=== PATIENT | female | born 1965 | race Caucasian/White ===

== ENCOUNTER 2021-11-23 15:00 | Outpatient (RCR) | payer BC, SELFPAY ==
--- NOTE | 2021-10-19 12:35 | OT.OPOE ---
OT Outpatient Ortho Eval OT Outpatient Ortho Eval Start: 10/19/21 11:07 Freq: Status: Active Protocol: Document 10/19/21 11:08 DANN (Rec: 10/19/21 11:14 DANN [id number]) E-signed By Hien Lindo, OTR/L, CLT OT OP Ortho Eval Details Type Type Eval Complexity Low Outpatient History/Precautions Insurance Information Insurance Information Blue Cross/[employer] Current Condition/Medical Diagnosis Referring Provider Margot Vázquez PA-C Treatment Diagnosis R elbow, wrist pain Date of Onset 05/17/21 Other Conditions Anxiety, hyperlipidemia, Factor V Leien R sciatica. 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 Has 45# dog, 19 y/o in college at [employer] and 21 y/o son at [employer]. She has been having increased R lateral epicondyle pain after large ledesma thorn removal and paving projects in May 2021. Has tried changing activities, and now has stopped weightlifting, per poor tolerance of weightlifting machines. Now taking ibuprofen 600 mg 1-2 x day ( was rx 3x/day). Functionally having difficulty with managing food containers , lifting groceries, pots and pans, use of gardening tools/ dog leash in R hand, unable to use weight machines at the gym. Pain Assessment Pain Present Pain Present Pain Reported Location R el Description Tightness,Pressure,Sharp,Dull, Achy,Throbbing,Stabbing,With Movement Intensity 8 Goniometric Comments Goniometric Comments Goniometric Comments ROM is WNl for all forearm and wrist planes. MMT of biceps/triceps 5/5, biceps resistance 3/10 tendon at R CET. 4+/5 and tender at R common extensor tendon/CET ulnar margin 2 cm distal to ulnar groove during WR EX ( 7/ 10 pn), RD (3/10), Supination (3/10) and pronation 5/10). Chip Machine Operator is 21# R (6/10 at CET) pos 1 and pos 2 is 7# (6/10 pain at CET). (improves to 16 # with compression cuff in place). L is 54# pos 1 and 50 # pos #2. Johnson pinch is 11# R ( 3/10 at CET) and L is 13#. 3 pt is 9.5# R ( 1/10 tender) and 13#L. OT Objective Data Hand Hand Dominance Right Additional Information Objective Additional Information Wrist extensor muscles R are thick rope like with round thick nodules 1.5 cm x 2 in upper CET. /lateral aspect. No biceps, tricep trigger points. . Upper Extremity Special Tests Wrist Durkan's Test Negative Left,Negative Right Tenosynovitis Wrist Finklestein Test Negative Left,Negative Right Degenerative Arthritis Hand Trapeziometacarpal Joint Grind Test Negative Right Upper Extremity Special Tests Comments Comments Pos 2 package collector is 7/10 painful R UE. OT Problems Problems Problems Decreased Strength,Sensory Sensitivity,Lifting,Gripping, Pinching Assessment Assessment Assessment Given Jennifer's diagnosis of elbow/wrist pain (with lateral epicondylitis sx pattern) and ?difficulty with edema, pain, ROM and strength loss of R hand, wrist/elbow, she would benefit from skilled OT to address these areas. would benefit from skilled OT to suport reduced pain with daily function. Occupational Therapy Treatment Plan - OP Potential Rehabilitation Potential Excellent Set Goals Goals Set with Patient Yes Goals Goals In 8 weeks, Jennifer will demonstrate:? 1) Decreased pn to <2/10 80% of the time with sustained gripping, carrying groceries, reading books and weeding. 2) I HEP for stretching, gradual strengthening and self mgmt strategies. 3) improved R package collector strength to 45# and pinch to 13# with R forearm pain < 1/10. 4) ??Pt to be fit with functional bracing (for elbow counter pressure cuff,) and use adaptive strategies to protect joint integrity to support less pain with ADL. Treatment Plan Treatment Plan Evaluation,Edema Control, Iontophoresis,Joint Mobilization,Manual Therapy, Splinting,Ultrasound, Therapeutic Exercise,Self-Care /Home Management,Education Expected Frequency 1-2x Week Expected Duration 6-8 Weeks Certification Certification I Certify That: Therapy Services Provided, Therapy Plan Established, Therapy Plan Reviewed
== END 2022-08-05 08:12 | disposition home or self-care (01) ==
PROVIDERS: PCP Physician Assistant Medical; Visit Provider Physician Assistant Medical
DX: M25.521 Pain in right elbow (principal); M25.531 Pain in right wrist; Z51.89 Encounter for other specified aftercare
CPT/HCPCS: 80061; 80076; 97033; 97035; 97110; 97140; 97165; 97535; X5282

== ENCOUNTER 2022-02-04 12:39 | Outpatient (CLI) | payer BC, SELFPAY ==
[2022-02-04 16:26] LABS: Albumin* 4.2 g/dL (3.3-5.0)
[2022-02-04 16:28] LABS: Cholesterol* 184 mg/dL (90-199)
[2022-02-04 16:29] LABS: Alanine Aminotransferase* 28 U/L (4-35); Alkaline Phosphatase* 52 U/L (40-150); Aspartate Amino Transferase* 39 U/L (12-35); Bilirubin Direct* 0.1 mg/dL (0.0-0.5); Bilirubin Total* 0.6 mg/dL (0.1-1.5); HDL Cholesterol* 58 mg/dL (>=50); LDL Cholesterol Calculated 111 mg/dL (<100); Total Protein* 6.9 g/dL (6.0-8.3); Triglycerides* 73 mg/dL (40-149)
== END 2022-02-04 12:40 | disposition home or self-care (01) ==
PROVIDERS: PCP Physician Assistant Medical; Visit Provider Physician Assistant Medical
DX: E78.5 Hyperlipidemia, unspecified (principal)
CPT/HCPCS: 80061; 80076

== ENCOUNTER 2022-03-15 08:58 | Outpatient (CLI) | payer OTHER, SELFPAY ==
[2022-03-15 13:56] LABS: Glucose* 94 mg/dL (60-115)
[2022-03-15 14:36] LABS: Hepatitis C Virus Antibody* Negative (Negative)
[2022-03-15 14:38] LABS: HIV 1/2/P24 Combo Screen* Negative (Negative)
== END 2022-03-15 08:59 | disposition home or self-care (01) ==
PROVIDERS: PCP Physician Assistant Medical; Visit Provider Physician Assistant Medical
DX: Z00.00 Encounter for general adult medical examination without abnormal findings (principal); E78.5 Hyperlipidemia, unspecified; R79.89 Other specified abnormal findings of blood chemistry; Z13.1 Encounter for screening for diabetes mellitus
CPT/HCPCS: 82947; 86703; 86803

== ENCOUNTER 2022-10-14 08:41 | Outpatient (CLI) | payer OTHER, SELFPAY ==
--- NOTE | 2022-10-14 08:45 | CRLHL7_ITS ---
For Patients: As a result of the Century Cures Act, medical imaging exams and procedure reports are released immediately into your electronic medical record. You may view this report before your referring provider. If you have questions, please contact your health care provider. BILATERAL DIGITAL SCREENING MAMMOGRAM WITH TOMOSYNTHESIS AND COMPUTER-AIDED DETECTION CLINICAL HISTORY: Routine screening exam. COMPARISON: 01/13/2021, 11/14/2019, 10/23/2018. TECHNIQUE: Digital mammogram in CC and MLO projections including computer-aided detection (CAD). Tomosynthesis utilized. BREAST COMPOSITION: The breasts are heterogeneously dense, which may obscure small masses. FINDINGS: RIGHT Breast: No suspicious findings. LEFT Breast: Focal asymmetric density retroareolar plane 5 cm from the nipple. IMPRESSION: LEFT breast asymmetry/mass. RECOMMENDATIONS: Additional mammographic views of the LEFT breast including 3D spot compression CC/MLO. LEFT breast ultrasound may also be required. BI-RADS Category 0: Incomplete: Need Additional Imaging Evaluation and/or Prior Mammograms for Comparison The [facility] will contact the patient for follow-up. A lay language report of this examination will be provided to the patient. Dictated by Ernie Montanez MD @ 10/14/2022 11:57:41 AM jj/Dictated by: Ernie Montanez MD @ 10/14/2022 11:57:00 AM (Electronically Signed)
== END 2022-10-14 08:42 | disposition home or self-care (01) ==
LOC: MAMMO 08:42
PROVIDERS: PCP Physician Assistant Medical; Visit Provider Physician Assistant Medical
DX: Z12.31 Encounter for screening mammogram for malignant neoplasm of breast (principal); N63.20 Unspecified lump in the left breast, unspecified quadrant; R92.2 Inconclusive mammogram
CPT/HCPCS: 77063; 77067

== ENCOUNTER 2022-10-20 09:20 | Outpatient (CLI) | payer OTHER, SELFPAY ==
--- NOTE | 2022-10-20 09:45 | CRLHL7_ITS ---
For Patients: As a result of the Cures Act, medical imaging exams and procedure reports are released immediately into your electronic medical record. You may view this report before your referring provider. If you have questions, please contact your health care provider. DIAGNOSTIC LEFT BREAST MAMMOGRAM WITH COMPUTER-AIDED DETECTION AND TOMOSYNTHESIS LEFT BREAST ULTRASOUND CLINICAL HISTORY: LEFT breast mass/asymmetry. COMPARISON: 10/14/2022. TECHNIQUE: Digital LEFT mammogram in 2 projections. Computer-aided detection and tomosynthesis were used. Real-time ultrasound imaging of LEFT breast with imaging documentation. Scanning was performed by both the technologist and the radiologist. BREAST COMPOSITION: There are scattered areas of fibroglandular density FINDINGS: 3D spot-compression CC/MLO LEFT breast mammogram images submitted. Decreased conspicuity of previously noted asymmetric density. No architectural distortion. Punctate benign calcifications. Targeted LEFT breast ultrasound performed in the retroareolar plane extending to 12 o`clock 5 cm from the nipple. Normal fibroglandular tissue is present. No suspicious findings. IMPRESSION: No evidence of malignancy LEFT breast. RECOMMENDATIONS: Annual bilateral screening mammography. BI-RADS Category 2: Benign Results and recommendations discussed with the patient. A lay language report of this examination will be provided to the patient. Dictated by Ernie Montanez MD @ 10/20/2022 12:21:55 PM/dante KEVEN/Dictated by: Ernie Montanez MD @ 10/20/2022 12:21:00 PM (Electronically Signed)
--- NOTE | 2022-10-20 10:15 | CRLHL7_ITS ---
For Patients: As a result of the Century Cures Act, medical imaging exams and procedure reports are released immediately into your electronic medical record. You may view this report before your referring provider. If you have questions, please contact your health care provider. PLEASE SEE LEFT DIAGNOSTIC MAMMOGRAM OF SAME DAY. CRL:dante KEVEN/Dictated by: Ernie Montanez MD @ 10/20/2022 12:21:00 PM (Electronically Signed)
== END 2022-10-20 09:21 | disposition home or self-care (01) ==
LOC: MAMMO 09:21
PROVIDERS: PCP Physician Assistant Medical; Visit Provider Physician Assistant Medical
DX: N63.20 Unspecified lump in the left breast, unspecified quadrant (principal); R92.8 Other abnormal and inconclusive findings on diagnostic imaging of breast
CPT/HCPCS: 76642; 77065; G0279

== ENCOUNTER 2022-11-12 10:54 | Outpatient (CLI) | payer OTHER, SELFPAY ==
--- NOTE | 2022-11-12 12:40 | W.ANESCHARGE ---
Anesthesia Charges Start Date/Time Anesthesia Start Date: 11/12/22 Anesthesia Start Time: 12:20 Stop Date/Time Anesthesia Stop Date: 11/12/22 Anesthesia Stop Time: 12:42
--- NOTE | 2022-11-12 12:44 | W.ANESCHARGE ---
Anesthesia Charges Start Date/Time Anesthesia Start Date: 11/12/22 Anesthesia Start Time: 12:20 Stop Date/Time Anesthesia Stop Date: 11/12/22 Anesthesia Stop Time: 12:42
== END 2022-11-12 10:55 | disposition home or self-care (01) ==
LOC: OP CLINIC 10:55
PROVIDERS: PCP Physician Assistant Medical; Visit Provider Internal Medicine
DX: Z12.11 Encounter for screening for malignant neoplasm of colon (principal); K57.30 Diverticulosis of large intestine without perforation or abscess without bleeding; Z86.010 Personal history of colon polyps
CPT/HCPCS: 00812; 45378; J2704

== ENCOUNTER 2023-04-15 13:00 | Outpatient (RCR) | payer OTHER, SELFPAY | END 2023-08-13 23:59 | disposition home or self-care (01) | PROVIDERS: PCP Physician Assistant Medical; Visit Provider Physician Assistant Medical | DX: M79.671 Pain in right foot (principal); M79.672 Pain in left foot; Z51.89 Encounter for other specified aftercare | CPT/HCPCS: 80053; 80061; 82306; 84443; 97110; 97162 ==

== ENCOUNTER 2023-05-10 19:07 | Outpatient (CLI) | payer OTHER, SELFPAY ==
--- NOTE | 2023-05-31 08:57 | W.PM.SLEEP ---
Sleep Study Details Details Interpreting Provider: Zenia Date of Sleep Study: 05/10/23 Sleep Study Details: STUDY TYPE:? Home unattended ? BMI:? 28 ORDERING PROVIDER:Smiley Vázquez INDICATION:? Concerns about sleep apnea ? SLEEP SUMMARY:? 481 minutes monitored RESPIRATORY SUMMARY:? AHI 8.6 Low oxygen 85 0.3% of study oxygen less than 90% Snoring 56.7% PERIODIC LIMB MOVEMENTS OF SLEEP:? Not recorded during home study CARDIAC:? Range 56-108, mean 70.4 IMPRESSION:? Mild obstructive sleep apnea RECOMMENDATION: Treatment options include CPAP, dental appliance and/or airway expansion surgery.
== END 2023-05-10 19:08 | disposition home or self-care (01) ==
LOC: SLEEP 19:07
PROVIDERS: PCP Physician Assistant Medical; Visit Provider Physician Assistant Medical
DX: G47.33 Obstructive sleep apnea (adult) (pediatric) (principal)
CPT/HCPCS: 95806

== ENCOUNTER 2023-07-29 13:37 | Outpatient (CLI) | payer OTHER, SELFPAY | END 2023-07-29 13:38 | disposition home or self-care (01) | LOC: NFLDREF 08-01 15:32 | PROVIDERS: PCP Physician Assistant Medical; Referring Provider Physician Assistant Medical; Visit Provider Physician Assistant Medical | DX: E78.5 Hyperlipidemia, unspecified (principal) | CPT/HCPCS: 82550 ==

== ENCOUNTER 2023-09-23 08:35 | Outpatient (CLI) | payer OTHER, SELFPAY | END 2023-09-23 08:36 | disposition home or self-care (01) | LOC: NFLDREF 09-25 04:53 | PROVIDERS: PCP Physician Assistant Medical; Referring Provider Physician Assistant Medical; Visit Provider Physician Assistant Medical | DX: E78.5 Hyperlipidemia, unspecified (principal) | CPT/HCPCS: 80061 ==

== ENCOUNTER 2023-10-17 11:12 | Outpatient (CLI) | payer OTHER, SELFPAY | END 2023-10-17 11:13 | disposition home or self-care (01) | PROVIDERS: PCP Physician Assistant Medical; Visit Provider Physician Assistant Medical | DX: R53.83 Other fatigue (principal) | CPT/HCPCS: 80061; 80076; 82607; 82728 ==

== ENCOUNTER 2023-12-13 16:45 | Outpatient (CLI) | payer OTHER, SELFPAY ==
--- NOTE | 2023-12-13 17:20 | CRLHL7_ITS ---
For Patients: As a result of the Century Cures Act, medical imaging exams and procedure reports are released immediately into your electronic medical record. You may view this report before your referring provider. If you have questions, please contact your health care provider. BILATERAL SCREENING MAMMOGRAM WITH COMPUTER-AIDED DETECTION AND TOMOSYNTHESIS TECHNIQUE: CC and MLO views were obtained. These mammographic images have been obtained using full-field digital technique. These mammographic images were interpreted with the benefit of computer-aided detection. Breast tomosynthesis was used in this interpretation. COMPARISON FILM: 10/20/22 diagnostic, 10/14/22, 05/14/22. FINDINGS: There are scattered areas of fibroglandular density. IMPRESSION: There is no radiographic evidence for malignancy. ASSESSMENT: BI-RADS Category 1: Negative RECOMMENDATION: Routine screening mammogram in 1 year. A lay language report of this examination will be provided to the patient. ERNIE MILES M.D. Diagnostic Radiologist [email or web address] Transcribed: 1:[address]/Dictated by: Ernie Miles MD @ 12/19/2023 11:31:00 AM (Electronically Signed)
== END 2023-12-13 16:46 | disposition home or self-care (01) ==
LOC: MAMMO 16:45
PROVIDERS: PCP Physician Assistant Medical; Visit Provider Physician Assistant Medical
DX: Z12.31 Encounter for screening mammogram for malignant neoplasm of breast (principal)
CPT/HCPCS: 77063; 77067

== ENCOUNTER 2024-01-06 08:50 | Outpatient (CLI) | payer OTHER, SELFPAY | END 2024-01-06 08:51 | disposition home or self-care (01) | LOC: NFLDREF 14:31 | PROVIDERS: PCP Physician Assistant Medical; Referring Provider Physician Assistant Medical; Visit Provider Physician Assistant Medical | DX: R79.89 Other specified abnormal findings of blood chemistry (principal) | CPT/HCPCS: 80076 ==

== ENCOUNTER 2024-09-19 08:15 | Outpatient (CLI) | payer OTHER, SELFPAY | END 2024-09-19 08:16 | disposition home or self-care (01) | LOC: NFLDREF 09-23 14:35 | PROVIDERS: PCP Physician Assistant Medical; Referring Provider Physician Assistant Medical; Visit Provider Family Medicine | DX: E78.5 Hyperlipidemia, unspecified (principal); Z13.29 Encounter for screening for other suspected endocrine disorder; Z13.1 Encounter for screening for diabetes mellitus | CPT/HCPCS: 80048; 80061; 84443 ==

== ENCOUNTER 2024-09-20 14:21 | Outpatient (CLI) | payer OTHER, SELFPAY ==
--- NOTE | 2024-09-20 14:30 | CRLHL7_ITS ---
For Patients: As a result of the Century Cures Act, medical imaging exams and procedure reports are released immediately into your electronic medical record. You may view this report before your referring provider. If you have questions, please contact your health care provider. XR DXA BONE MINERAL DENSITY (BMD) Current height (in): 64.0. Weight (lb): 165.0. Menopause age: 51. Ethnicity: White. Reason for exam: Screening for osteoporosis. 1. Have you had a previous hip or vertebral fracture? No. 2. Have you had any fractures during your adult life which did not result from significant trauma (e.g., auto accident)? No. 3. Did either of your parents have a hip fracture? No. 4. Do you smoke? No. 5. Have you ever taken Glucocorticoids? No. 6. Do you have rheumatoid arthritis? No. 7. Do you have secondary osteoporosis? No. 8. Do you drink 3 or more alcoholic drinks per day? No. 9. Are you being treated for osteoporosis? No. 10. Have you ever taken any of the following medications: Actonel, Evista, Fosamax, Miacalcin, Reclast, Boniva, Forteo, HRT (i.e. estrogen/hormone therapy), Protelos, Prolia, Vitamin D, Calcium, other ??? please specify. ANSWER: Yes, vitamin D, HRT. 11. Do you have any of the following medical conditions: Anorexia or bulimia, asthma or emphysema, end stage renal disease, hyperparathyroidism, any seizure disorders, cancer, inflammatory bowel diseases, hysterectomy, other ??? please specify. ANSWER: No. 12. What was your maximum height (inches)? 64. 13. Do you perform weight bearing exercise regularly? Yes. 14. Do you regularly consume dairy products? No. 15. Do you drink caffeinated beverages? No. 16. At what age did your period start? 15. 17. Are you premenopausal? No. 18. How many full-term pregnancies have you had? 2. 19. Have you ever missed your period for more than 6 months in a row (not including or menopause)? No. TECHNIQUE: Bone mineral density study was performed using the [employer] FINDINGS: The results of the study expressed as bone mineral density (BMD) are as follows: Lumbar spine L1 to L4: BMD: 0.926 g/cm2. T-score: -1.1. Z-score: 0.2 Neck Left: BMD: 0.677 g/cm2. T-score: -1.6. Z-score: -0.3 Right: BMD: 0.668 g/cm2. T-score: -1.6. Z-score: -0.4 Total Left: BMD: 0.832 g/cm2. T-score: -0.9. Z-score: -0.0 Right: BMD: 0.867 g/cm2. T-score: -0.6. Z-score: 0.2 IMPRESSION: Osteopenia. FRAX 10-year Fracture Risk Major Osteoporotic Fracture: 7.8 percent Hip Fracture: 0.7 percent Reported Risk Factors: [place] () Neck BMD = 0.668, BMI = 28.3 Ernie Montanez M.D. Diagnostic Radiologist [email or web address] Transcribed: 3:47 pm DW/Dictated by: Ernie Montanez MD @ 09/20/2024 3:34:00 PM (Electronically Signed)
== END 2024-09-20 14:22 | disposition home or self-care (01) ==
LOC: RAD 14:22
PROVIDERS: PCP Physician Assistant Medical; Visit Provider Family Medicine
DX: Z13.820 Encounter for screening for osteoporosis (principal); M85.89 Other specified disorders of bone density and structure, multiple sites
CPT/HCPCS: 77080

== ENCOUNTER 2025-01-14 13:47 | Outpatient (CLI) | payer OTHER, SELFPAY ==
--- NOTE | 2025-01-14 14:00 | CRLHL7_ITS ---
For Patients: As a result of the Century Cures Act, medical imaging exams and procedure reports are released immediately into your electronic medical record. You may view this report before your referring provider. If you have questions, please contact your health care provider. INDICATION: BILATERAL SCREENING MAMMOGRAM, ASYMPTOMATIC 59 Y/O FEMALE COMPARISON: 12/13/2023, 10/20/2022 TECHNIQUE: Digital mammogram in CC and MLO projections including computer-aided detection (CAD) and tomosynthesis. BREAST COMPOSITION: There are scattered areas of fibroglandular density. FINDINGS: No suspicious findings. ASSESSMENT: BI-RADS 1 Negative RECOMMENDATION: Annual screening mammogram. A lay language report of this examination will be provided to the patient. Dictated by: Ernie Montanez MD @ 01/15/2025 09:30:43 (Electronically Signed)
== END 2025-01-14 13:48 | disposition home or self-care (01) ==
LOC: MAMMO 13:47
PROVIDERS: PCP Physician Assistant Medical; Visit Provider Family Medicine
DX: Z12.31 Encounter for screening mammogram for malignant neoplasm of breast (principal)
CPT/HCPCS: 77063; 77067